=== PATIENT | female | born 1980 | race Caucasian/White ===

== ENCOUNTER 2017-10-05 08:14 | Emergency (ER) | payer BC ==
[~2017-10-05] VITALS: Ht 160 cm; Wt 58.4 kg
[2017-10-05] MEDS ORDERED: BUPIVACAINE 0.25% ONE (08:49)
[2017-10-05] MEDS ORDERED: TRIAMCINOLONE ACETONIDE 40 MG/ML, 1ML IM ONE (09:00)
[2017-10-05] MEDS ORDERED: BUPIVACAINE/PF 0.5% INFIL ONE (09:00)
[2017-10-05 09:34] VITALS: BP 147/81
== END 2017-10-05 09:36 | disposition home or self-care (01) ==
LOC: ED 09:17
DX: M25.521 Pain in right elbow (principal); M79.641 Pain in right hand
CPT/HCPCS: 99281